=== PATIENT | female | born 1945 | race Caucasian/White ===

== ENCOUNTER → 2016-12-24 | Outpatient (CLI) | payer MEDICARE, BC ==
[~2016-12-24] MED LIST: ALBUTEROL17 GM INH; AMITRYPTYLINE PO; ASPIRIN PO; CERTAGEN PO; FLEXERIL PO; LIPITOR PO; MOBIC PO; NORVASC PO; SINGULAIR PO; ZANTAC PO; ZOLOFT PO
--- NOTE | ~2016-12-24 | CT71 ---
[facility] A Service of [facility] RADIOLOGY TEXT RESULTS PATIENT: MARIA ESTHER GUZMAN LOCATION: [facility] : 49 UNIT #: [id number] AGE: [address]: Beatriz Jacques APRN SEX: F ORDER DR: [id number] [facility] [address] [place], [place] [address] [id number] O MR#: [id number] Acc #: [id number] NAME: MARIA ESTHER GUZMAN : 1945 SEX: F STUDY DATE/TIME: 12/24/2016 16:04 UNIT: [facility] ROOM: STUDY DESCRIPTION: CT Head Wo Contrast Attending Physician: Beatriz Jacques A.P.R.N. Referring Physician: Beatriz Jacques A.P.R.N. Ordering Physician: Beatriz Jacques A.P.R.N. Primary Care Physician: Beatriz Jacques A.P.R.N. MEDICAL IMAGING REPORT This report is preliminary unless electronic signature is present EXAM Head CT no contrast, 12/24/2016 PROCEDURE Routine unenhanced head CT. COMPARISON None HISTORY Posterior headache and pain for [address] exam was performed with one or more of the following radiation dose reduction techniques: automatic exposure control, adjustment of mA and/or kV according to patient size, and iterative reconstruction. FINDINGS Axial noncontrast images were obtained from the skull base to the vertex. Ventricular size and configuration are normal. There is no evidence of acute infarct or hemorrhage. There are no extra-axial fluid collections. No mass lesion or mass effect is seen. There are no skull fractures. IMPRESSION Normal noncontrast head CT. Dictated by... Peter Bocanegra M.D. THIS IS AN ELECTRONICALLY VERIFIED REPORT Peter Bocanegra M.D. at 12/26/2016 11:48 AM [facility] A Service of [facility] RADIOLOGY TEXT RESULTS PATIENT: MARIA ESTHER GUZMAN LOCATION: [facility] : 49 UNIT #: [id number] AGE: [address]: Beatriz Jacques APRN SEX: F ORDER DR: TD: 12/25/2016 11:51 JOB #: [id number] MEDICAL IMAGING REPORT COPY
== END | disposition home or self-care (01) ==
LOC: CCAT 15:11
DX: R51 Headache (principal)
CPT/HCPCS: 70450